=== PATIENT | male | born 1990 | race Hispanic/Latino ===

== ENCOUNTER 2018-10-09 10:20 | Emergency (ER) | payer SELFPAY ==
[2018-10-09] MEDS ORDERED: DICYCLOMINE HCL 10 MG CAP ONE (11:05)
[2018-10-09] MEDS ORDERED: MAGNE/ALUM HYDROXD 30 ML UCUP ONE (11:05)
[2018-10-09] MEDS ORDERED: LIDOCAINE VISCOUS 2% SOLN 15 ML UDC ONE (11:06)
[2018-10-09] MEDS ORDERED: ONDANSETRON 4 MG/2 ML VIAL ONE (11:06)
[2018-10-09] MEDS ORDERED: MORPHINE 4 MG/ML SYR ONE (11:06)
[2018-10-09 11:24] LABS: Absolute Lymphocytes (CBC) 0.6 K/uL (0.7-4.9); Absolute Monocytes 0.5 K/uL (0.1-1.3); Absolute Neutrophil 11.7 K/uL (1.8-8.0); Basophils % 0.1 % (0-1.3); Eosinophils % 0.3 % (0-4.4); Hematocrit 47.6 % (39.6-49.0); Lymphocytes % 4.8 % (15.3-44.8); MPV 9.3 fL (7.6-11.3); Monocytes % 4.1 % (3.3-12.3); RBC Red Blood Cell Count 5.33 M/uL (4.33-5.43)
[2018-10-09 11:25] LABS: Albumin 4.9 g/dL (3.4-5.0); Bilirubin Direct 0.2 mg/dL (0-0.2); Potassium 3.6 mmol/L (3.5-5.1); Protein, Total 8.3 g/dL (6.4-8.2)
--- NOTE | 2018-10-09 11:55 | RAD REPORT ---
EXAM DESCRIPTION: CTAbdomen Pelvis W Contrast - 10/09/2018 11:45 am CLINICAL HISTORY: Abdominal pain. NO oral. Epigastric/pancreatic pain COMPARISON: No comparisons TECHNIQUE: Biphasic CT imaging of the abdomen and pelvis was performed with 100 ml non-ionic IV cont rast. All CT scans are performed using dose optimization technique as appropriate and may include automated exposure control or mA/KV adjustment according to patient size. FINDINGS: The lung bases are clear. The liver, spleen, pancreas, adrenal glands and kidneys are within normal limits. No bowel obstruction, free air, free fluid or abscess. The appendix is not identified as a discrete structure, however, no secondary findings of appendicitis are identified. No evidence of significan t lymphadenopathy. No suspicious bony findings. IMPRESSION: No acute intra-abdominal or pelvic finding.
--- NOTE | 2018-10-09 12:57 | EDPHYS ---
Physician Documentation [facility] Name: Duong Mayes Age: 28 yrs Sex: Male : 1990 Arrival Date: 10/09/2018 Time: 10:22 Bed 18 Private MD: ED Physician José Horan HPI: 10/09 10:41 This 28 yrs old Male presents to ER via Wheelchair with complaints of ps1 Abdominal Pain. 10:41 patient states that he has epigastric abdominal pain that started last night. He states ps1 the pain does not radiate. Rates pain as moderate to severe. No fever. Associated with n/v/d which started about 3 am. He states that he is not a drinker and the last time that he drank hard was 17 of January last year. Socially about 3 beers occasionally. States that his diarrhea was mucous like without blood. No prior surgeries. . Historical: - Allergies: 10:32 No Known Allergies; aa5 - PMHx: 10:32 None; aa5 - PSHx: 10:32 None; aa5 - Immunization history:: Flu vaccine status is unknown. - Social history:: Smoking status: Patient/guardian denies using tobacco. - Ebola Screening: : No symptoms or risks identified at this time. ROS: 10:41 Constitutional: Negative for fever, chills, and weight loss, Eyes: Negative for injury, ps1 pain, redness, and discharge, Cardiovascular: Negative for chest pain, palpitations, and edema, Respiratory: Negative for shortness of breath, cough, wheezing, and pleuritic chest pain, MS/Extremity: Negative for injury and deformity, Skin: Negative for injury, rash, and discoloration, Neuro: Negative for headache, weakness, numbness, tingling, and seizure. 10:41 Abdomen/GI: Positive for abdominal pain, nausea, vomiting, and diarrhea. Exam: 10:41 Constitutional: This is a well developed, well nourished patient who is awake, alert, ps1 and in no acute distress. Head/Face: Normocephalic, atraumatic. Eyes: Pupils equal round and reactive to light, extra-ocular motions intact. Lids and lashes normal. Conjunctiva and sclera are non-icteric and not injected. Chest/axilla: Normal chest wall appearance and motion. Nontender with no deformity. No lesions are appreciated. Cardiovascular: Regular rate and rhythm. No gallops, murmurs, or rubs. Normal PMI, no JVD. No pulse deficits. MS/ Extremity: Pulses equal, no cyanosis. Neurovascular intact. Full, normal range of motion. Neuro: Awake and alert, GCS 15, oriented to person, place, time, and situation. Cranial nerves II-XII grossly intact. Sensory grossly intact. 10:41 Abdomen/GI: Inspection: abdomen appears normal, Bowel sounds: normal, Palpation: moderate abdominal tenderness, in the epigastric area and left upper quadrant. 10:41 Skin: Appearance: diaphoresis is noted. Vital Signs: 10:32 BP 120 / 89; Pulse 97; Resp 24 S; Temp 99.1(O); Pulse Ox 100% on R/A; Weight 90.72 kg aa5 (R); Height 5 ft. 10 in. (177.80 cm) (R); Pain 9/10; 11:54 BP 124 / 85; Pulse 95; Resp 18; Pulse Ox 100% on R/A; hj 12:45 BP 122 / 86; Pulse 90; Resp 18; Pulse Ox 100% on R/A; hj 10:32 Body Mass Index 28.70 (90.72 kg, 177.80 cm) aa5 MDM: 11:24 Patient medically screened. ps1 12:54 Data reviewed: vital signs, nurses notes, lab test result(s), radiologic studies, and ps1 as a result, I will discharge patient. Counseling: I had a detailed discussion with the patient and/or guardian regarding: the historical points, exam findings, and any diagnostic results supporting the discharge/admit diagnosis, lab results, radiology results, the need for outpatient follow up, a repairer handtools, to return to the emergency department if symptoms worsen or persist or if there are any questions or concerns that arise at home. 10/09 10:40 Order name: CBC with Diff ps1 10/09 10:40 Order name: Creatinine for Radiology; Complete Time: 11:24 ps1 10/09 10:40 Order name: Hepatic Function; Complete Time: 11:38 ps1 10/09 10:40 Order name: Lipase; Complete Time: 11: ps1 10/09 10:40 Order name: CMP; Complete Time: 11: ps1 10/09 11:36 Order name: Manual Differential EDMS 10/09 10:40 Order name: IV Saline Lock; Complete Time: 13:07 [facility] 10/09 10:40 Order name: Labs collected and sent; Complete Time: 13: [facility] 10/09 10:41 Order name: CT Abd/Pelvis - W/Contrast; Complete Time: 12:09 ps1 Administered Medications: 11:14 Drug: morphine 4 mg Route: IVP; Site: right forearm; pc1 13:06 Follow up: Response: No adverse reaction; Pain is decreased hj 11:14 Drug: Zofran 4 mg Route: IVP; Site: right forearm; pc1 13:06 Follow up: Response: No adverse reaction hj 11:14 Drug: Bentyl 20 mg Route: PO; pc1 13:06 Follow up: Response: No adverse reaction hj 11:15 Drug: GI Cocktail without - (Maalox Suspension 30 ml, Lidocaine Liquid 2 % 15 pc1 ml) Route: PO; 13:07 Follow up: Response: No adverse reaction hj Disposition: 10/09/18 12:56 Discharged to Home. Impression: Epigastric pain. - Condition is Stable. - Discharge Instructions: Abdominal Pain, Adult. - Prescriptions for Bentyl 10 mg Oral Capsule - take 1 capsule by ORAL route every 6 hours As needed; 40 capsule. Carafate 1 gram Oral Tablet - take 1 tablet by ORAL route 4 times per day take on an empty stomach, beginning on waking and last dose at bedtime; 100 tablet. Zofran 4 mg Oral Tablet - take 1 tablet by ORAL route every 12 hours As needed; 20 tablet. - Work release form, Medication Reconciliation Form, Thank You Letter, Antibiotic Education, Prescription Opioid Use form. - Follow up: Private Physician; When: 1 week; Reason: Re-evaluation by your physician, consider GI eval for peptic ulcer. . - Problem is new. - Symptoms have improved. Signatures: Dispatcher [employer] [facility] Brandy Figueroa RN RN aa5 Orlando Hernández RN RN hj José Horan MD MD ps1 Richie Hammer pc1 Corrections: (The following items were deleted from the chart) 13:12 12:56 10/09/2018 12:56 Discharged to Home. Impression: Epigastric pain. Condition is hj Stable. Forms are Medication Reconciliation Form, Thank You Letter, Antibiotic Education, Prescription Opioid Use. Follow up: Private Physician; When: 1 week; Reason: Re-evaluation by your physician, consider GI eval for peptic ulcer. . Problem is new. Symptoms have improved. ps1
--- NOTE | 2018-10-09 12:57 | ER ---
Nurse's Notes [facility] Name: Duong Mayes Age: 28 yrs Sex: Male : 1990 Arrival Date: 10/09/2018 Time: 10:22 Bed 18 Private MD: Diagnosis: Epigastric pain Presentation: 10/09 10:31 Presenting complaint: Patient states: upper abd pain and nausea, vomiting, and diarrhea aa5 that began today around 0300. Transition of care: patient was not received from another setting of care. Onset of symptoms was October 09, 2018. Risk Assessment: Do you want to hurt yourself or someone else? Patient reports no desire to harm self or others. Care prior to arrival: None. 10:31 Method Of Arrival: Wheelchair aa5 10:31 Acuity: TOMASA 3 aa5 10:34 Initial Sepsis Screen: Does the patient meet any 2 criteria? No. Patient's initial hj sepsis screen is negative. Does the patient have a suspected source of infection? No. Patient's initial sepsis screen is negative. Triage Assessment: 10:34 General: Appears in no apparent distress. uncomfortable, Behavior is calm, cooperative, hj appropriate for age. Pain: Complains of pain in left upper quadrant and epigastric area. GI: Reports lower abdominal pain, upper abdominal pain, gaseousness, nausea. Historical: - Allergies: 10:32 No Known Allergies; aa5 - PMHx: 10:32 None; aa5 - PSHx: 10:32 None; aa5 - Immunization history:: Flu vaccine status is unknown. - Social history:: Smoking status: Patient/guardian denies using tobacco. - Ebola Screening: : No symptoms or risks identified at this time. Screenin:31 Abuse screen: Denies threats or abuse. Denies injuries from another. Nutritional hj screening: No deficits noted. Tuberculosis screening: No symptoms or risk factors identified. Fall Risk None identified. Assessment: 10:34 GI: Bowel sounds present X 4 quads. Abd is soft and non tender. hj 11:54 Reassessment: Patient and/or family updated on plan of care and expected duration. Pain hj level reassessed. Patient is alert, oriented x 3, equal unlabored respirations, skin warm/dry/pink. awaiting CT result;. 12:45 Reassessment: Patient and/or family updated on plan of care and expected duration. Pain hj level reassessed. Patient is alert, oriented x 3, equal unlabored respirations, skin warm/dry/pink. awaiting POC;. Vital Signs: 10:32 BP 120 / 89; Pulse 97; Resp 24 S; Temp 99.1(O); Pulse Ox 100% on R/A; Weight 90.72 kg aa5 (R); Height 5 ft. 10 in. (177.80 cm) (R); Pain 9/10; 11:54 BP 124 / 85; Pulse 95; Resp 18; Pulse Ox 100% on R/A; hj 12:45 BP 122 / 86; Pulse 90; Resp 18; Pulse Ox 100% on R/A; hj 10:32 Body Mass Index 28.70 (90.72 kg, 177.80 cm) aa5 ED Course: 10:22 Patient arrived in ED. mr 10:31 Triage completed. aa5 10:31 Arm band placed on. aa5 10:34 Patient has correct armband on for positive identification. Placed in gown. Bed in low hj position. Call light in reach. Side rails up X 1. Adult w/ patient. 10:35 José Horan MD is Attending Physician. ps1 10:48 Orlando Hernández RN is Primary Nurse. hj 11:13 Inserted saline lock: 20 gauge in right forearm, using aseptic technique. pc1 11:24 Radiology exam delayed due to lab results not completed at this time. (BUN/Creatinine). vr 11:[address] via wheelchair. vr 11:46 CT Abd/Pelvis - W/Contrast In Process Unspecified. EDMS 13:10 No provider procedures requiring assistance completed. IV discontinued, intact, hj bleeding controlled, No redness/swelling at site. Pressure dressing applied. Administered Medications: 11:14 Drug: morphine 4 mg Route: IVP; Site: right forearm; pc1 13:06 Follow up: Response: No adverse reaction; Pain is decreased hj 11:14 Drug: Zofran 4 mg Route: IVP; Site: right forearm; pc1 13:06 Follow up: Response: No adverse reaction hj 11:14 Drug: Bentyl 20 mg Route: PO; pc1 13:06 Follow up: Response: No adverse reaction hj 11:15 Drug: GI Cocktail without - (Maalox Suspension 30 ml, Lidocaine Liquid 2 % 15 pc1 ml) Route: PO; 13:07 Follow up: Response: No adverse reaction hj Outcome: 12:56 Discharge ordered by . ps1 13:10 Discharged to home ambulatory. hj 13:10 Condition: stable 13:10 Discharge instructions given to patient, Instructed on discharge instructions, follow up and referral plans. medication usage, Demonstrated understanding of instructions, follow-up care, medications, Prescriptions given X 3. 13:12 Patient left the ED. colby Signatures: Dispatcher [employer] [facility] Michelle Pavon IfgueroaBrandy denson, RN RN Deyanira Stahl Henry, RN RN José Greer MD MD ps1 Hammer, Richie pc1
[2018-10-09 13:18] LABS: Blood Morphology Comment NOT SEEN (NOT SEEN); Platelet Estimate ADEQ; Platelets, Giant FEW
== END 2018-10-09 13:12 | disposition home or self-care (01) ==
LOC: ER 10:20 → EDBD 10:20 → ER 13:12
DX: R10.13 Epigastric pain (principal)
CPT/HCPCS: 36415; 74177; 80053; 80076; 83690; 85025; 96374; 96375; 99284; J2405; Q9967

== ENCOUNTER 2023-12-16 19:43 | Emergency (ER) | payer SELFPAY ==
--- OUTSIDE RECORDS SUMMARY | 2023-12-16 19:45 | XMS REPORT | Continuity of Care Document ---
Author Name Unknown Address [address] [place] [address]. [address] [employer] Address [address] [place] [address]. [address] [place] [address] Care Team Providers [employer] Director Name Role Phone Unavailable Unavailable Unavailable Encounters Start Date/Time End Date/Time Encounter Type Admission Type Attending Clinicians Care Facility Care Department Encounter ID Source 2023-10-13 09:47:05 2023-10-13 09:47:05 Outpatient [facility] [id number] Victorino Quintana
[2023-12-16] MEDS ORDERED: IBUPROFEN 400 MG TAB ONE (20:51)
[2023-12-16] MEDS ORDERED: ONDANSETRON 4 MG (ODT) TAB ONE (20:51)
[2023-12-16] MEDS ORDERED: ACETAMINOPHEN 500 MG TAB ONE (20:51)
[2023-12-16] MEDS ORDERED: GUAIFENESIN/DM 5 ML UCUP ONE (20:52)
[2023-12-16] MEDS ORDERED: NA CHLORIDE 0.9% 1,000 ML ONE (20:52)
[2023-12-16 21:01] LABS: Absolute Eosinophils 0.4 K/uL (0-0.5); Absolute Lymphocytes (CBC) 1.3 K/uL (0.7-4.9); Absolute Monocytes 0.7 K/uL (0.1-1.3); Absolute Neutrophil 8.6 K/uL (1.8-8.0); Basophils % 0.3 % (0-1.3); Eosinophils % 3.7 % (0-4.4); Hematocrit 45.8 % (39.6-49.0); Hemoglobin 15.3 g/dL (13.6-17.9); Lymphocytes % 11.7 % (15.3-44.8); MCH 29.8 pg (27.0-35.0); MCHC 33.5 g/dL (32.0-36.0); MCV 88.8 fL (80-100); MPV 8.7 fL (7.6-11.3); Monocytes % 6.5 % (3.3-12.3); Neutrophils % 77.8 % (41.7-73.7); Platelets 313 thou/uL (152-406); RBC Red Blood Cell Count 5.15 M/uL (4.33-5.43); Red Cell Distribution Width 13.9 % (12.1-15.2)
--- NOTE | 2023-12-16 21:02 | RAD REPORT ---
EXAM DESCRIPTION: RAD - Chest Pa And Lat (2 Views) - 12/16/2023 8:27 pm CLINICAL HISTORY: CHEST PAIN COMPARISON: No comparisons TECHNIQUE: PA and lateral views of the chest were obtained. FINDINGS: The lungs are clear. Heart size is normal and central vasculature is within normal limits. No pleural effusion or pneumothorax seen. No acute bony finding noted. IMPRESSION: No acute cardiopulmonary process.
[2023-12-16 21:19] LABS: ALT/SGPT 158 U/L (16-61); AST/SGOT 48 U/L (15-37); Albumin 4.3 g/dL (3.4-5.0); Albumin/Globulin Ratio 1.2 (1.1-1.8); Alkaline Phosphatase 98 U/L (45-117); Anion Gap 7.5 mEq/L (5.0-15.0); BUN Blood Urea Nitrogen 11 mg/dL (7-18); Bicarbonate 29 mEq/L (21-32); Bilirubin Total 0.5 mg/dL (0.2-1.0); Globulin 3.6 g/dL (2.3-3.5); Glomerular Filtration Rate 92 ml/min (=/>90); Glucose Level 113 mg/dL (74-106); Potassium 3.5 mEq/L (3.5-5.1); Protein, Total 7.9 g/dL (6.4-8.2); Sodium Level 136 mEq/L (136-145)
[2023-12-16 21:23] LABS: Bilirubin Direct < 0.2 mg/dL (0-0.2); Bilirubin Indirect, Calculated 0.3 mg/dL (0.2-0.8)
[2023-12-16] MEDS ORDERED: CEFTRIAXONE 1000 MG/VIAL ONE (21:46)
[2023-12-16] MEDS ORDERED: NA CHLORIDE 0.9% 100 ML ONE (21:47)
--- NOTE | 2023-12-16 21:57 | ER ---
Nurse's Notes [facility] Name: Duong Mayes Age: 33 yrs Sex: Male : 1990 Arrival Date: 12/16/2023 Time: 19:43 Bed 4 Private MD: Diagnosis: Acute bronchitis, unspecified;Acute bacterial bronchitis, acute febrile illness. Presentation: 12/15 19:55 Chief complaint: Patient states: diarrhea , cough, fever. Coronavirus screen: At this as6 time, the client does not indicate any symptoms associated with coronavirus-19. Ebola Screen: No symptoms or risks identified at this time. Initial Sepsis Screen: Does the patient meet any 2 criteria? RR > 20 per min. Temp <36.0*C (96.8*F)) or > 38.3*C (100.9*F). Yes Does the patient have a suspected source of infection? No. Patient's initial sepsis screen is negative. Risk Assessment: Do you want to hurt yourself or someone else? Patient reports no desire to harm self or others. Onset of symptoms was December 09, 2023. 19:55 Method Of Arrival: Ambulatory as6 19:55 Acuity: TOMASA 2 as6 Historical: - Allergies: 19:56 No Known Allergies; as6 - Home Meds: 19:56 None [Active]; as6 - PMHx: 19:56 None; as6 - PSHx: 19:56 None; as6 - Immunization history:: Adult Immunizations not up to date. - Infectious Disease History:: Denies. - Social history:: Smoking status: Patient denies any tobacco usage or history of. - Family history:: not pertinent. Screenin:30 [facility] ED Fall Risk Assessment (Adult) History of falling in the last 3 months, km8 including since admission No falls in past 3 months (0 pts) Confusion or Disorientation No (0 pts) Intoxicated or Sedated No (0 pts) Impaired Gait No (0 pts) Mobility Assist Device Used No (0 pt) Altered Elimination No (0 pt) Score/Fall Risk Level 0 - 2 = Low Risk Oriented to surroundings, Maintained a safe environment, Educated pt \T\ family on fall prevention, incl call for assistance when getting out of bed, Assessed \T\ reinforced patient's understanding of fall precautions. Abuse screen: Denies threats or abuse. Denies injuries from another. Nutritional screening: No deficits noted. Tuberculosis screening: No symptoms or risk factors identified. Assessment: 20:30 General: Appears in no apparent distress. comfortable, Behavior is calm, cooperative, km8 appropriate for age. Pain: Complains of pain in back and chest Pain currently is 7 out of 10 on a pain scale. Neuro: Level of Consciousness is awake, alert, obeys commands, Oriented to person, place, time, situation. Cardiovascular: Denies shortness of breath, Patient's skin is warm and dry. Chest pain is described as mild, quality is tight is located in anterior chest wall episodes are continuous is aggravated by coughing. Respiratory: Airway is patent Respiratory effort is even, unlabored, Respiratory pattern is regular, symmetrical. GI: No signs and/or symptoms were reported involving the gastrointestinal system. : No signs and/or symptoms were reported regarding the genitourinary system. EENT: No signs and/or symptoms were reported regarding the EENT system. Derm: No signs and/or symptoms reported regarding the dermatologic system. Skin is intact, is healthy with good turgor, Skin is dry, Skin is pink, warm \T\ dry. normal, Skin temperature is warm. Musculoskeletal: No signs and/or symptoms reported regarding the musculoskeletal system. Range of motion: intact in all extremities. 22:11 Reassessment: Patient appears in no apparent distress at this time. Patient and/or km8 family updated on plan of care and expected duration. Pain level reassessed. Patient is alert, oriented x 3, equal unlabored respirations, skin warm/dry/pink. Patient states feeling better. Patient states symptoms have improved. Vital Signs: 19:55 BP 144 / 86; Pulse 118; Resp 18 S; Temp 101.7(TE); Pulse Ox 99% on R/A; Weight 102.06 as6 kg (R); Height 5 ft. 10 in. (R); Pain 7/10; 20:30 BP 126 / 75; Pulse 111; Resp 13; Pulse Ox 97% on R/A; km8 21:00 BP 104 / 79; Pulse 102; Resp 18; Pulse Ox 100% on R/A; km8 21:55 Temp 98.6(TE); km8 22:00 BP 116 / 66; Pulse 101; Resp 20; Pulse Ox 96% on R/A; km8 22:20 BP 116 / 66; Pulse 97; Resp 13; Temp 98.2(TE); Pulse Ox 97% on R/A; Pain 0/10; tm6 19:55 Body Mass Index 32.28 (102.06 kg, 177.8 cm) as6 19:55 Pain Scale: Adult as6 22:20 Pain Scale: Adult tm6 [place] Coma Score: 20:30 Eye Response: spontaneous(4). Motor Response: obeys commands(6). Verbal Response: km8 oriented(5). Total: 15. 20:35 Eye Response: spontaneous(4). Motor Response: obeys commands(6). Verbal Response: sp4 oriented(5). Total: 15. ED Course: 19:46 Patient arrived in ED. jj6 19:55 Arm band placed on left wrist. as6 19:56 Triage completed. as6 20:02 Julio Cesar Boogie MD is Attending Physician. sp4 20:29 Chest Pa And Lat (2 Views) XRAY In Process Unspecified. EDMS 20:30 Patient has correct armband on for positive identification. Bed in low position. Call km8 light in reach. Side rails up X2. Provided Education on: call light use. Client placed on continuous cardiac and pulse oximetry monitoring. NIBP monitoring applied. strain technician on. Pulse ox on. NIBP on. 20:39 Blake Blair, RN is Primary Nurse. tm6 20:47 Initial lab(s) drawn, by ED staff, sent to lab. First set of blood cultures drawn by ED tm6 staff, EKG done, by ED staff, reviewed by Julio Cesar Boogie MD. Inserted saline lock: 20 gauge in left antecubital area, using aseptic technique. 20:47 CRP Sent. tm6 20:47 Blood Culture Adult (2) Sent. tm6 20:47 Basic Metabolic Panel Sent. tm6 20:47 Influenza Screen (a \T\ B) Sent. tm6 20:47 CBC with Diff Sent. tm6 20:47 LFT's Sent. tm6 22:20 No provider procedures requiring assistance completed. IV discontinued, intact, tm6 bleeding controlled, No redness/swelling at site. Pressure dressing applied. Administered Medications: 21:00 Drug: NS 0.9% IV 1000 ml IV at 1 bolus Per protocol; 1000 mL bolus Route: IV; Rate: 1 km8 bolus; Site: left antecubital; 22:20 Follow up: IV Status: Completed infusion; IV Intake: 1000ml tm6 21:00 Drug: Acetaminophen PO 1000 mg PO once Route: PO; km8 21:00 Drug: Ibuprofen PO 800 mg PO once Route: PO; km8 21:00 Drug: Ondansetron PO 4 mg PO once Route: PO; km8 21:00 Drug: Dextromethorphan-Guaifenesin PO Liquid 10 mg-100 mg/5 mL 10 ml PO once Route: PO; km8 21:51 Drug: Rocephin - Rocephin (cefTRIAXone) IVPB 1 grams IVPB once over 30 mins; (mix in 50 km8 mL NS) Route: IVPB; Infused Over: 30 mins; Site: left antecubital; Medication: 20:30 VIS not applicable for this client. km8 Intake: 22:20 IV: 1000ml; Total: 1000ml. tm6 Outcome: 21:56 Discharge ordered by . antonia 22:20 Discharged to home ambulatory, with family, tm6 22:20 Condition: stable 22:20 Discharge instructions given to patient, family, Instructed on discharge instructions, follow up and referral plans. medication usage, Demonstrated understanding of instructions, follow-up care, medications, Prescriptions given X 2, 22:21 Patient left the ED. tm6 Signatures: Dispatcher [employer] EDMS Tammi Burgess jj6 Poncho Bledsoe RN RN as6 Potepalov, Sergey, MD MD spJessenia Mitchell RN RN km8 Blake Blair RN RN tm6
--- NOTE | 2023-12-16 21:57 | EDPHYS ---
Physician Documentation [facility] Name: Duong Mayes Age: 33 yrs Sex: Male : 1990 Arrival Date: 12/16/2023 Time: 19:43 Bed 4 Private MD: ED Physician Julio Cesar Boogie HPI: 12/15 20:02 This 33 yrs old Male presents to ER via Ambulatory with complaints of Fever, sp4 PT STATES HE HAS CHEST PAIN/TIGHTNESS WHEN HE COUGHS. 20:35 33-year-old male presents with complaint of fever, cough, green sputum, starting 2 days sp4 ago on Tuesday. Patient also states he has developed a fever at home Tmax 103.1. Patient went to his clinic today but decided to walk out and check into the emergency room.. Historical: - Allergies: 19:56 No Known Allergies; as6 - Home Meds: 19:56 None [Active]; as6 - PMHx: 19:56 None; as6 - PSHx: 19:56 None; as6 - Immunization history:: Adult Immunizations not up to date. - Infectious Disease History:: Denies. - Social history:: Smoking status: Patient denies any tobacco usage or history of. - Family history:: not pertinent. ROS: 20:35 Constitutional: Positive fever, positive cough, positive chest discomfort, positive sp4 greenish sputum, positive fever 20:35 All other systems are negative, Exam: 20:35 Constitutional: This is a well developed, well nourished patient who is awake, alert, sp4 and in no acute distress. Head/Face: Normocephalic, atraumatic. Eyes: Pupils equal round and reactive to light, extra-ocular motions intact. Lids and lashes normal. Conjunctiva and sclera are not injected. Cornea within normal limits. Periorbital areas with no swelling, redness, or edema. ENT: Nares patent. No nasal discharge, no septal abnormalities noted. Tympanic membranes are normal and external auditory canals are clear. Oropharynx with no redness, swelling, or masses, exudates, or evidence of obstruction, uvula midline. Mucous membranes moist. Neck: Trachea midline, no thyromegaly or masses palpated, and no cervical lymphadenopathy. Supple, full range of motion without nuchal rigidity, or vertebral point tenderness. Chest/axilla: Normal chest wall appearance and motion. Nontender with no deformity. No lesions are appreciated. Cardiovascular: Regular rate and rhythm with a normal S1 and S2. No gallops, murmurs, or rubs. Normal PMI, no JVD. No pulse deficits. Respiratory: Lungs have equal breath sounds bilaterally, clear to auscultation and percussion. No rales, rhonchi or wheezes noted. No increased work of breathing, no retractions or nasal flaring. Abdomen/GI: Soft, with normal bowel sounds. No distension or tympany. No guarding or rebound. No evidence of tenderness throughout. Back: No spinal tenderness. No costovertebral tenderness. Skin: Warm, dry with normal turgor. Normal color with no rashes, no lesions, and no evidence of cellulitis. MS/ Extremity: Pulses equal, no cyanosis. Neurovascular intact. Full, normal range of motion. Neuro: Awake and alert, GCS 15, oriented to person, place, time, and situation. Cranial nerves II-XII grossly intact. Motor strength 5/5 in all extremities. Sensory grossly intact. Psych: Awake, alert, with orientation to person, place and time. Behavior, mood, and affect are within normal limits 21:59 ECG was reviewed by the Attending Physician. EKG 2042 reveals sinus tachycardia 116, sp4 otherwise normal. Vital Signs: 19:55 BP 144 / 86; Pulse 118; Resp 18 S; Temp 101.7(TE); Pulse Ox 99% on R/A; Weight 102.06 as6 kg (R); Height 5 ft. 10 in. (R); Pain 7/10; 20:30 BP 126 / 75; Pulse 111; Resp 13; Pulse Ox 97% on R/A; km8 21:00 BP 104 / 79; Pulse 102; Resp 18; Pulse Ox 100% on R/A; km8 21:55 Temp 98.6(TE); km8 22:00 BP 116 / 66; Pulse 101; Resp 20; Pulse Ox 96% on R/A; km8 22:20 BP 116 / 66; Pulse 97; Resp 13; Temp 98.2(TE); Pulse Ox 97% on R/A; Pain 0/10; tm6 19:55 Body Mass Index 32.28 (102.06 kg, 177.8 cm) as6 19:55 Pain Scale: Adult as6 22:20 Pain Scale: Adult tm6 [place] Coma Score: 20:30 Eye Response: spontaneous(4). Motor Response: obeys commands(6). Verbal Response: km8 oriented(5). Total: 15. 20:35 Eye Response: spontaneous(4). Motor Response: obeys commands(6). Verbal Response: sp4 oriented(5). Total: 15. MDM: 20:03 Patient medically screened. sp4 21:55 Differential diagnosis: viral Infection, bacterial infection, URI, bronchitis, sp4 pneumonia. Data reviewed: vital signs, nurses notes, lab test result(s), EKG, radiologic studies, plain films. Consideration of Admission/Observation Escalation of care including admission/observation considered. ED course: Patient feels better, he is stable for discharge home with cephalexin for 10 days.. 12/15 20:02 Order name: Basic Metabolic Panel; Complete [facility]: 21:35 [facility] 12/[facility] 20:02 Order name: CBC with Diff; Complete Time: 21:35 [facility] 12/15 20:02 Order name: LFT's; Complete Time: 21:35 [facility] 12/15 20:02 Order name: Influenza Screen (a \T\ B); Complete Time: 21:35 [facility] 12/15 20:04 Order name: Blood Culture Adult (2) [facility] 12/15 20:18 Order name: CRP; Complete Time: 21:35 [facility] 12/15 20:02 Order name: Chest Pa And Lat (2 Views) XRAY; Complete Time: 21:35 [facility] 12/15 20:02 Order name: EKG; Complete Time: 20:03 [facility] 12/15 20:02 Order name: Cardiac monitoring; Complete Time: 20:47 [facility] 12/15 20:02 Order name: EKG - Nurse/Tech; Complete Time: 20:47 [facility] 12/15 20:02 Order name: IV Saline Lock; Complete Time: 20:47 [facility] 12/15 20:02 Order name: Labs collected and sent; Complete Time: 20:47 [facility] 12/15 20:02 Order name: O2 Per Protocol; Complete Time: 20:47 [facility] 12/15 20:02 Order name: O2 Sat Monitoring; Complete Time: 20:47 sp4 EC:59 Rate is 116 beats/min. Rhythm is regular, Sinus tachycardia. QRS [place] is Normal. ND sp4 interval is normal. QRS interval is normal. QT interval is normal. No Q waves. T waves are Normal. No ST changes noted. Clinical impression: No evidence of ischemia. Interpreted by me. Reviewed by me. Administered Medications: 21:00 Drug: NS 0.9% IV 1000 ml IV at 1 bolus Per protocol; 1000 mL bolus Route: IV; Rate: 1 km8 bolus; Site: left antecubital; 22:20 Follow up: IV Status: Completed infusion; IV Intake: 1000ml tm6 21:00 Drug: Acetaminophen PO 1000 mg PO once Route: PO; km8 21:00 Drug: Ibuprofen PO 800 mg PO once Route: PO; km8 21:00 Drug: Ondansetron PO 4 mg PO once Route: PO; km8 21:00 Drug: Dextromethorphan-Guaifenesin PO Liquid 10 mg-100 mg/5 mL 10 ml PO once Route: PO; km8 21:51 Drug: Rocephin - Rocephin (cefTRIAXone) IVPB 1 grams IVPB once over 30 mins; (mix in 50 km8 mL NS) Route: IVPB; Infused Over: 30 mins; Site: left antecubital; Disposition Summary: 12/16/23 21:56 Discharge Ordered Notes: Location: Home sp4 Problem: new sp4 Symptoms: have improved sp4 Condition: Stable sp4 Diagnosis - Acute bronchitis, unspecified sp4 - Acute bacterial bronchitis, acute febrile illness. sp4 Followup: sp4 - With: Private Physician - When: 7 - 10 days - Reason: Recheck today's complaints Discharge Instructions: - Discharge Summary Sheet sp4 - Acute Bronchitis, Adult sp4 Forms: - Work release form sp4 - Patient Portal Instructions sp4 Prescriptions: - dextromethorphan-guaifenesin 20-400 mg Oral tablet - take 2 tablet ORAL route every 4 hours PRN cough; 40 tablet; Refills: 0, sp4 Product Selection Permitted - Cephalexin 500 mg Oral Capsule - take 1 capsule ORAL route every 12 hours for 10 days; 20 capsule; Refills: 0, sp4 Product Selection Permitted Signatures: Dispatcher [employer] Poncho Rucker RN RN as6 Julio Cesar Boogie MD MD sp4 Jessenia Quan, RN RN km8 Blake Blair RN tm6 Corrections: (The following items were deleted from the chart) 20:03 20:03 Influenza Screen (A \T\ B)+BA.LAB.[email or web address] ordered. EDMS EDMS 20:03 20:03 Chest Pa And Lat (2 Views)+RAD.RAD.[email or web address] ordered. EDMS EDMS 20:19 20:19 C-REACTIVE PROTEIN+C.LAB.BRZ ordered. EDMS EDMS
[2023-12-16 22:52] VITALS: BP 116/66; TEMP 98.2; O2SAT 97
--- NOTE | 2023-12-17 13:53 | EKG ---
Test Date: 2023-12-16 Test Time: 20:43:20 Valve Assembler: PHILLIP MEASUREMENT RESULTS: Intervals: Rate: 116 FL: 150 QRSD: 100 QT: 368 QTc: 511 Damon: P: 67 FL: 150 QRS: 77 T: 43 INTERPRETIVE STATEMENTS: Sinus tachycardia Otherwise normal ECG No previous ECG available for comparison Electronically Signed On 12-17-23 13:53:14 CDT by Jarek Tran
== END 2023-12-16 22:21 | disposition home or self-care (01) ==
LOC: ER 19:43
DX: J20.9 Acute bronchitis, unspecified (principal); Z11.52 Encounter for screening for COVID-19
CPT/HCPCS: 36415; 71046; 80048; 80076; 85025; 86140; 87040; 87804; 93005; 96361; 96374; 99285; J0696; J7030; Q0162